=== PATIENT | male | born 1955 | race Caucasian/White ===

== ENCOUNTER → 2022-07-19 | Outpatient (CLI) | payer OTHER, SELFPAY ==
--- NOTE | 2022-07-19 11:20 | ECHOD_ITS ---
Reason For Study: ARRHYTHMIA Procedure This was a 2D Doppler, Color Flow transthoracic echocardiogram. The study was technically difficult. Exam performed in department. Left Ventricle Normal LV size. Left ventricular systolic function is normal. The estimated ejection fraction is 65 %. No evidence for diastolic dysfunction. No regional wall motion abnormalities noted. Right Ventricle Normal RV size. Normal systolic function. Atria The left atrium is mildly enlarged. Normal right atrium. No doppler evidence for ASD. Mitral Valve There is no mitral annular calcification. Normal mitral valve. Trivial mitral valve insufficiency. Tricuspid Valve Normal tricuspid valve. Trivial tricuspid valve insufficiency. Right ventricular systolic pressure estimated to be 33 mmHg. Aortic Valve Trisinus/trileaflet aortic valve. Mild focal aortic valve thickening. Pulmonic Valve The pulmonic valve is not well visualized. Great Vessels Mildly dilated aortic root. Pericardium/Pleural No pericardial effusion. MMode/2D Measurements & Calculations LVIDd: 5.9 cm IVSd: 0.90 cm Ao root diam: 4.1 cm LVIDs: 4.4 cm LVPWd: 0.94 cm RVDd: 3.4 cm FS: 25.5 % LAV(MOD-bp): 121.3 ml LA A4 area: 32.0 cm2 LA dimension(2D): 5.4 cm LAV(MOD-bp) Indexed: 52.3 ml/m2 LAV(MOD-sp2): 111.0 ml LAV(MOD-sp4): 111.1 ml RA A4 area: 17.0 cm2 Time Measurements MV dec time: 0.21 sec Doppler Measurements & Calculations MV E max ken: 99.8 cm/sec Lat Peak E' Ken: 16.6 cm/sec Med Peak E' Ken: 7.8 cm/sec MV A max ken: 71.8 cm/sec E/E' lat: 6.0 E/E' med: 12.8 MV E/A: 1.4 MV dec slope: 468.8 cm/sec2 Ao V2 max: 129.5 cm/sec LV V1 max: 99.9 cm/sec Ao max P.7 mmHg LV V1 max P.0 mmHg Ao V2 mean: 89.7 cm/sec LV V1 mean P.0 mmHg Ao mean P.7 mmHg LV V1 mean: 65.1 cm/sec Ao V2 VTI: 36.3 cm LV V1 VTI: 24.7 cm AV (velocity ratio): 0.68 PA V2 max: 89.8 cm/sec TR max ken: 275.0 cm/sec TR max P.2 mmHg ECHO/Echo Complete Interpretation Summary The study was technically difficult. Left ventricular systolic function is normal. The estimated ejection fraction is 65 %. The left atrium is mildly enlarged. Trivial mitral valve insufficiency. Trivial tricuspid valve insufficiency. Mild focal aortic valve thickening. Mildly dilated aortic root. Right ventricular systolic pressure estimated to be 33 mmHg. No evidence for diastolic dysfunction. Ordering Physician: Jan Maurice Performed By: Alice Burns, KAREY, RVT
--- NOTE | 2022-07-19 12:40 | STRESSREP ---
Stress Test Report Date: 07-19-2022 Procedure: Exercise tolerance test Indications: Cardiac dysrhythmias; sinus bradycardia Consent: Per the patient Procedure: The patient exercised on a Simon protocol for 4 minutes and 30 seconds completing Stage I and 1 minute and 30 seconds of Stage II minutes achieving a peak heart rate of 169 bpm (111% predicted maximal heart rate) with a resting blood pressure of 158/82 mmHg and a peak blood pressure 220/90 mmHg and a peak MET capacity of approximately 7 MET's. The baseline ECG demonstrated sinus bradycardia. The peak exercise ECG demonstrated no obvious ECG changes. There was an occasional PVC during exercise and an isolated ventricular couplet during exercise and a rare PVC during recovery. The functional capacity was considered fair. The patient had no complaint of chest discomfort during exercise or recovery. The examination was discontinued secondary to dyspnea. Impression: 1. Technically adequate (percent predicted maximal heart rate greater than 85%) exercise tolerance test 2. Peak exercise ECG with no obvious ECG change 3. There was an occasional PVC during exercise and an isolated ventricular couplet during exercise and a rare PVC during recovery Comment: Based upon the patient's heart rate response it does not appear the patient demonstrates evidence compatible with chronotropic incompetence at this time. This note was generated with [employer] software. It may contain incorrect words, spelling, and punctuation that were not noted in checking the note before signing.
== END | disposition home or self-care (01) ==
PROVIDERS: PCP Family Medicine; Visit Provider Internal Medicine Cardiovascular Disease
DX: I10 Essential (primary) hypertension (principal); E03.9 Hypothyroidism, unspecified; R00.1 Bradycardia, unspecified; E78.2 Mixed hyperlipidemia; I65.23 Occlusion and stenosis of bilateral carotid arteries; R94.31 Abnormal electrocardiogram [ECG] [EKG]
CPT/HCPCS: 93017; 93306

== ENCOUNTER → 2022-07-21 | Outpatient (CLI) | payer OTHER, SELFPAY | END | disposition home or self-care (01) | LOC: PSN 10:49 | PROVIDERS: PCP Family Medicine; Referring Provider Internal Medicine Cardiovascular Disease; Visit Provider Internal Medicine Cardiovascular Disease | DX: I10 Essential (primary) hypertension (principal); I65.23 Occlusion and stenosis of bilateral carotid arteries; E03.9 Hypothyroidism, unspecified; R00.1 Bradycardia, unspecified; E78.2 Mixed hyperlipidemia | CPT/HCPCS: 93225; 93226 ==